=== PATIENT | male | born 2000 | race Caucasian/White ===

== ENCOUNTER 2021-10-20 05:03 | Emergency (ER) | payer MEDICAID ==
[~2021-10-20] VITALS: Ht 170.2 cm; Wt 63.1 kg
[2021-10-20] MEDS ORDERED: PROTONIX40 MG PO (06:58)
== END 2021-10-20 08:20 | disposition home or self-care (01) ==
LOC: ED 05:03
DX: R10.12 Left upper quadrant pain (principal); R45.851 Suicidal ideations
CPT/HCPCS: 36415; 80053; 81001; 83690; 84443; 85025; 99284; A9270; G0480